=== PATIENT | female | born 1980 | race Caucasian/White ===

== ENCOUNTER 2017-09-23 18:52 | Emergency (ER) | payer OTHER ==
[2017-09-23 18:52] VITALS: BMI 57.9
[2017-09-23] MEDS ORDERED: Albuterol-Ipratrop 3 mg / 0.5 (3 ml) UD IH STA (19:23)
--- NOTE | 2017-09-23 19:31 | ED PDOC ---
History of Present Illness History of Present Illness: 36 year old female, with a past medical history of asthma, presents to the emergency department with complaints of shortness of breath, a nonproductive cough, fever, and sore throat beginning two days ago. She reports there was no improvement of symptoms after using her inhaler. PMD: Gucci Jimenez HPI: Influenza Time Seen by Provider: 09/23/17 19:18 Chief Complaint: Cough, Cold, Congestion Chief Complaint (Provider): Cough, Cold, Congestion History Per: Patient Exam Limitations: no limitations Onset/Duration Of Symptoms: Days (x2) Past Medical History Reviewed: Historical Data, Nursing Documentation, Vital Signs Vital Signs: Last Vital Signs Temp 97.9 F 09/23/17 18:59 Pulse 91 H 09/23/17 18:59 Resp 16 09/23/17 18:59 BP 138/83 09/23/17 18:59 Pulse Ox 95 09/23/17 18:59 - Medical History PMH: Asthma, HTN - Family History Family History: States: Unknown Family Hx - Home Medications Home Medications: Ambulatory Orders Medication Instructions Recorded Labetalol [Trandate] 300 mg PO Q8 12/02/15 Albuterol 0.083% [Albuterol 0.083% 2.5 mg INH RQ4 PRN #0 neb 12/06/15 Inhal Susana (2.5 mg/3 ml) UD] Albuterol/Ipratropium [Duoneb 3 3 ml INH RQ4 #0 neb 12/06/15 mg/0.5 mg (3 ml) UD] Ibuprofen [Motrin Tab] 600 mg PO Q6 #20 tab 12/06/15 Labetalol [Trandate] 300 mg PO Q8@0630,1430,2230 #0 tab 12/06/15 Levofloxacin [Levaquin] 750 mg PO DAILY #7 tablet 12/06/15 Multimineral/Multivitamin 1 tab PO DAILY #0 tab 12/06/15 [Therapeutic-M Tab] oxyCODONE/Acetaminophen [Percocet 1 tab PO Q4 PRN #20 tab 12/06/15 5/325 mg Tab] Albuterol 0.042% [Albuterol 0.042% 3 ml IH Q8 #1 susana 09/23/17 Inhal Susana (1.25mg/3ml) UD] Azithromycin [Zithromax] 250 mg PO DAILY #6 tab 09/23/17 Prednisone 50 mg PO DAILY #5 tab 09/23/17 - Allergies Allergies/Adverse Reactions: Allergies Allergy/AdvReac Type Severity Reaction Status Date / Time shrimp Allergy SHORTNESS Verified 08/19/15 10:34 OF BREATH Penicillins AdvReac RASH Verified 08/19/15 10:33 Review of Systems ROS Statement: Except As Marked, All Systems Reviewed And Found Negative Constitutional: Positive for: Fever ENT: Positive for: Throat Pain Respiratory: Positive for: Cough (nonproductive), Shortness of Breath Physical Exam - Reviewed Nursing Documentation Reviewed: Yes Vital Signs Reviewed: Yes - Physical Exam Appears: Positive for: No Acute Distress Head Exam: Positive for: ATRAUMATIC, NORMAL INSPECTION, NORMOCEPHALIC Skin: Positive for: Normal Color, Warm, Dry Eye Exam: Positive for: EOMI, Normal appearance, PERRL ENT: Positive for: Pharyngeal Erythema. Negative for: Tonsillar Exudate Neck: Positive for: Normal, Painless ROM Cardiovascular/Chest: Positive for: Regular Rate, Rhythm. Negative for: Murmur Respiratory: Positive for: Rhonchi (scattered), Wheezing (mild expiratory). Negative for: Respiratory Distress Gastrointestinal/Abdominal: Positive for: Soft. Negative for: Tenderness Back: Positive for: Normal Inspection Extremity: Positive for: Normal ROM. Negative for: Tenderness (upper and lower) , Swelling (upper and lower) Neurologic/Psych: Positive for: Alert, Oriented (x3) Medical Decision Making Medical Decision Making: Initial Impression: Shortness of breath, nonproductive cough Time: 19:23 Plan: --Albuterol 3ml IH --Prednisone 50mg --Chest XR --ED Urine --Peak flow pre/post tx Scribe Attestation: Documented by Talya Garrison, acting as a scribe for Yousif Yin MD Provider Scribe Attestation: All medical entries made by the Scribe were at my direction and personally dictated by me. I have reviewed the chart and agree that the record accurately reflects my personal performance of the history, physical exam, medical decision making, and the department course for this patient. I have also personally directed, reviewed, and agree with the discharge instructions and disposition. - Laboratory Results Result Diagrams: 09/23/17 20:50 - ECG O2 Sat by Pulse Oximetry: 95 (RA) Pulse Ox Interpretation: Normal Disposition - Clinical Impression Clinical Impression: Asthma, Bronchitis - Patient ED Disposition Is Patient to be Admitted: No Counseled Patient/Family Regarding: Studies Performed, Diagnosis, Need For Followup, Rx Given - Disposition Referrals: [facility] [Outside] Disposition: Routine/Home Disposition Time: 20:58 Condition: FAIR Prescriptions: Albuterol 0.042% [Albuterol 0.042% Inhal Susana (1.25mg/3ml) UD] 3 ml IH Q8 #1 susana Azithromycin [Zithromax] 250 mg PO DAILY #6 tab Prednisone 50 mg PO DAILY #5 tab Instructions: Acute Bronchitis, Asthma in Adults Forms: [facility] ([place])
[2017-09-23 20:54] LABS: BASO % 0.3 % (0.0-2.0); EOS # 0.3 K/uL (0.0-0.7); HEMOGLOBIN 11.9 g/dL (12.0-16.0); LYMPH # 2.7 K/uL (1.0-4.3); MEAN CELL VOLUME 76.7 fl (81.0-99.0); MEAN CORPUSCULAR HEMOGLOBIN 24.6 pg (27.0-31.0); MEAN CORPUSCULAR HGB CONC 32.1 g/dL (33.0-37.0); MEAN PLATELET VOLUME 7.5 fl (7.2-11.7); MONO # 1.1 K/uL (0.0-0.8); MONO % 9.6 % (0.0-10.0); NEUT # 7.2 K/uL (1.8-7.0); NEUT % 63.1 % (50.0-75.0); NRBC % 0.1 % (0.0-0.0); RBC 4.84 Mil/uL (3.80-5.20); RED CELL DISTRIBUTION WIDTH 18.2 % (11.5-14.5); WHITE BLOOD COUNT 11.4 K/uL (4.8-10.8)
[2017-09-23 21:04] VITALS: BP 150/89; PULSE 98; RESP 20; TEMP 100.3; O2SAT 99
[2017-09-23 21:05] LABS: ALB/GLOB RATIO 0.9 (1.0-2.1); ALBUMIN 3.7 g/dL (3.5-5.0); ALT/SGPT 27 U/L (9-52); AST/SGOT 21 U/L (14-36); BLOOD UREA NITROGEN 9 mg/dl (7-17); CALCIUM 8.8 mg/dL (8.4-10.2); GFR AFRICAN-AMERICAN > 60; GFR NON-AFRICAN AMERICAN > 60
--- NOTE | 2017-09-24 08:29 | RAD ---
HISTORY: COMPARISON: 12/03/2015. TECHNIQUE: Chest PA and lateral FINDINGS: LINES AND TUBES: None. LUNG AND PLEURA: The lungs are well inflated. There is consolidation in the left lower lobe with air bronchogram. HEART AND MEDIASTINUM: The heart is not enlarged. The hilar and mediastinal contours are within normal limits. SKELETAL STRUCTURES: The bony structures are within normal limits for the patient's age. VISUALIZED UPPER ABDOMEN: Normal. OTHER FINDINGS: None. IMPRESSION: Left lower lobe pneumonia. Follow-up after medical management is recommended to ensure complete resolution.
== END 2017-09-23 21:07 | disposition home or self-care (01) ==
LOC: H.ER 18:52
DX: J45.909 Unspecified asthma, uncomplicated (principal); J40 Bronchitis, not specified as acute or chronic; Z88.0 Allergy status to penicillin; I10 Essential (primary) hypertension